=== PATIENT | female | born 1955 | race Caucasian/White ===

== ENCOUNTER 2017-05-04 18:07 | Emergency (ER) | payer MEDICARE, OTHER ==
[~2017-05-04] VITALS: Ht 154.9 cm; Wt 100.0 kg
[~2017-05-04 18:07] MED LIST: ACET-2178 PO; ALPR-392 PO; ASPI-1159 PO; ATOR20TA65 PO; CARV6.2548 PO; FAMO20TA8 PO; FERR-63 PO; FURO20TA4 PO; GLIP5TAB12 PO; INSU3INS6 SUBCUT; LEVO88TA7 PO; REPAGLINIDE PO; SPIR25TA4 PO
[2017-05-04 18:29] VITALS: BP 101/69
== END 2017-05-04 21:30 | disposition left against medical advice (07) ==
LOC: ER 18:07
DX: S09.90XA Unspecified injury of head, initial encounter (principal); Z53.21 Procedure and treatment not carried out due to patient leaving prior to being seen by health care provider; X58.XXXA Exposure to other specified factors, initial encounter; Y93.89 Activity, other specified; Y92.89 Other specified places as the place of occurrence of the external cause; Y99.8 Other external cause status

== ENCOUNTER 2017-05-11 01:00 | Inpatient (IN) | payer MEDICARE, OTHER ==
[~2017-05-11] VITALS: Ht 177.8 cm; Wt 99.8 kg
[2017-05-11] VITALS (70 sets, daily range): BP systolic 67–112; BP diastolic 45–75
[2017-05-11] MEDS ORDERED: ACETAMINOPHEN 325MG TABLET PO STA (02:06)
[2017-05-11 02:25] LABS: BASOPHILS % 0.7 % (0.0-2.0); HEMATOCRIT. 34.6 % (36.0-48.0); HEMOGLOBIN. 11.2 g/dL (12.0-16.0); LYMPHOCYTES % 20.1 % (20.0-50.0); MEAN CORPUSCULAR HEMOGLOBIN 27.6 pg (28.0-32.0); MEAN CORPUSCULAR VOLUME 85.1 fL (81.0-99.0); MEAN PLATELET VOLUME 8.3 fl (7.4-10.4); NEUTROPHILS % 67.2 % (40.0-76.0); PLATELET 218 x1000/uL (130-400); RED BLOOD CELL COUNT 4.06 mill/uL (4.2-5.4); RED CELL DISTRIBUTION WIDTH 16.3 % (11.6-14.6)
[2017-05-11 02:33] LABS: INR 1.1; PROTHROMBIN TIME 11.1 sec
[2017-05-11 02:39] LABS: CARBON DIOXIDE 26 mEq/L (21-32); CHLORIDE 105 mEq/L (98-107)
[2017-05-11] MEDS ORDERED: MORPHINE SULFATE 4 MG/ML CPJ (NOT FOR IM USE) IV STA (03:05)
[2017-05-11] MEDS ORDERED: ONDANSETRON HCL 4MG/2ML VIAL IV STA (03:05)
[2017-05-11] MEDS ORDERED: NICARDIPINE 50 MG in SODIUM CHLORIDE 0.9% 230 ML IV PRN (08:00)
[2017-05-11] MEDS ORDERED: NICARDIPINE 100 MG in SODIUM CHLORIDE 0.9% 100 ML IV PRN (08:15)
[2017-05-11] MEDS: DEXT 5%/LACTATED RINGERS 1,000 ML IV SCH ×2 (08:28→23:48)
[2017-05-11] MEDS: NOREPINEPHRINE 4 MG in DEXT 5% WATER 246 ML IV PRN ×2 (09:00→21:38)
[2017-05-11] MEDS ORDERED: IPRATROPIUM/ALBUTEROL 0.5-3(2.5)MG/3ML NEB HHN PRN (09:00)
[2017-05-11 09:08] LABS: BG BASE EXCESS -0.2 mmol/L (-2.0-2.0); BG CARBOXYHEMOGLOBIN 3.4 % (0.5-1.5); BG DEOXYHEMOGLOBIN 2.5 % (0.0-5.0); BG FRACTION INSPIRED OXYGEN 28; BG HCO3 ACT 26.4 mmol/L (22.0-26.0); BG METHEMOGLOBIN 0.3 % (0.0-1.5); BG OXYGEN SATURATION 97.4 % (92.0-98.5); BG OXYHEMOGLOBIN 93.8 % (94.0-97.0); BG PCO2 51.5 mmHg (35.0-45.0); BG PH 7.327 (7.350-7.450); BG PO2 112.4 mmHg (75.0-100.0); BG SAMPLE SITE RIGHT RADIAL; BG TOTAL HEMOGLOBIN 12.2 g/dL (12.0-18.0); BG VENT MODE NASAL CANNULA
[2017-05-11] MEDS ORDERED: REPA1TAB5 PO (09:22)
[2017-05-11] MEDS ORDERED: LEVOTHYROXINE SODIUM 50MCG TABLET PO NR (10:00)
[2017-05-11] MEDS ORDERED: KCL 20MEQ/100ML PREMIX 100 ML IV SCH (10:00)
[2017-05-11] MEDS: PANTOPRAZOLE SODIUM 40 MG/VIAL IV SCH (10:01)
[2017-05-11] MEDS: PIPERACILLIN SODIUM/TAZOBACTAM 4.5 G in DEXT 5% WATER 100 ML IV SCH ×2 (10:03→17:40)
[2017-05-11] MEDS ORDERED: DEXTROSE 50% WATER 50ML SYRINGE IV PRN (10:30)
[2017-05-11] MEDS ORDERED: VANCOMYCIN 1500MG in DEXTROSE 5% WATER 250ML IV NR (11:00)
[2017-05-11] MEDS: BLOOD SUGAR DIAGNOSTIC STRIP TEST SCH ×3 (12:28→21:19)
[2017-05-11] MEDS: LEVETIRACETAM 500 MG in SODIUM CHLORIDE 0.9% 100 ML IV SCH ×2 (12:30→21:19)
[2017-05-11] MEDS: INSULIN LISPRO 100 UNITS/ML SUBCUT SCH ×3 (12:30→21:00)
[2017-05-11] MEDS: IPRATROPIUM/ALBUTEROL 0.5-3(2.5)MG/3ML NEB HHN SCH ×2 (14:38→19:54)
[2017-05-11 19:05] LABS: CLARITY URINE CLOUDY (CLEAR); COLOR URINE YELLOW (YELLOW); GLUCOSE URINE NEGATIVE (NEGATIVE); KETONES URINE TRACE (NEGATIVE); LEUKOCYTE ESTERASE URINE 2+ (NEGATIVE); NITRITE URINE NEGATIVE (NEGATIVE); OCCULT BLOOD URINE NEGATIVE (NEGATIVE); PH URINE 5.5 (4.5-8.0); PROTEIN URINE NEGATIVE (NEGATIVE); SPECIFIC GRAVITY URINE 1.026 (1.005-1.030)
[2017-05-11 19:31] LABS: *AMPHETAMINES SCREEN URINE NEGATIVE (NEGATIVE); *BARBITURATES SCREEN URINE NEGATIVE (NEGATIVE); *BENZODIAZEPINES SCREEN URINE PRESUMTIVE POSITIVE (NEGATIVE); *COCAINE SCREEN URINE NEGATIVE (NEGATIVE); CANNABINOID URINE SCREEN NEGATIVE (NEGATIVE); METHADONE URINE SCREEN NEGATIVE (NEGATIVE); OPIATES URINE SCREEN PRESUMTIVE POSITIVE (NEGATIVE); PHENCYCLIDINE URINE SCREEN NEGATIVE (NEGATIVE)
[2017-05-11] MEDS: MORPHINE SULFATE 2 MG/ML CPJ (NOT FOR IM USE) IV PRN (23:47)
[2017-05-12] VITALS (99 sets, daily range): BP systolic 61–187; BP diastolic 23–91
[2017-05-12] MEDS: PIPERACILLIN SODIUM/TAZOBACTAM 4.5 G in DEXT 5% WATER 100 ML IV SCH ×3 (01:57→17:45)
[2017-05-12] MEDS: IPRATROPIUM/ALBUTEROL 0.5-3(2.5)MG/3ML NEB HHN SCH ×4 (01:58→19:57)
[2017-05-12] MEDS: MORPHINE SULFATE 2 MG/ML CPJ (NOT FOR IM USE) IV PRN ×3 (03:38→22:23)
[2017-05-12] MEDS: LEVOTHYROXINE SODIUM 50MCG TABLET PO SCH (06:07)
[2017-05-12] MEDS: BLOOD SUGAR DIAGNOSTIC STRIP TEST SCH ×4 (06:14→20:44)
[2017-05-12] MEDS: INSULIN LISPRO 100 UNITS/ML SUBCUT SCH ×4 (06:19→20:44)
[2017-05-12] MEDS: LEVETIRACETAM 500 MG in SODIUM CHLORIDE 0.9% 100 ML IV SCH (08:57)
[2017-05-12] MEDS ORDERED: VANCOMYCIN 1500MG in DEXTROSE 5% WATER 250ML IV SCH (09:00)
[2017-05-12] MEDS: PANTOPRAZOLE SODIUM 40 MG/VIAL IV SCH (09:43)
[2017-05-12 09:51] LABS: BASOPHILS % 0.4 % (0.0-2.0); HEMATOCRIT. 34.8 % (36.0-48.0); HEMOGLOBIN. 11.2 g/dL (12.0-16.0); LYMPHOCYTES % 12.2 % (20.0-50.0); MEAN CORPUSCULAR HEMOGLOBIN 27.2 pg (28.0-32.0); MEAN CORPUSCULAR VOLUME 84.8 fL (81.0-99.0); MEAN PLATELET VOLUME 8.6 fl (7.4-10.4); MONOCYTES % 12.8 % (2.0-8.0); NEUTROPHILS % 74.6 % (40.0-76.0); PLATELET 233 x1000/uL (130-400); RED CELL DISTRIBUTION WIDTH 16.7 % (11.6-14.6)
[2017-05-12 10:09] LABS: CARBON DIOXIDE 26 mEq/L (21-32); CHLORIDE 105 mEq/L (98-107)
[2017-05-12] MEDS: NOREPINEPHRINE 4 MG in DEXT 5% WATER 246 ML IV PRN (10:28)
[2017-05-12] MEDS ORDERED: VANCOMYCIN 1250MG in DEXTROSE 5% WATER 250ML IV SCH (11:00)
[2017-05-12] MEDS: ACETAMINOPHEN 325MG TABLET PO PRN ×2 (11:52→20:18)
[2017-05-12] MEDS: DEXT 5%/LACTATED RINGERS 1,000 ML IV SCH (20:18)
[2017-05-12] MEDS: LEVETIRACETAM 500MG TABLET PO SCH (20:18)
[2017-05-13] VITALS (51 sets, daily range): BP systolic 66–119; BP diastolic 15–77
[2017-05-13] MEDS: NOREPINEPHRINE 4 MG in DEXT 5% WATER 246 ML IV PRN (00:49)
[2017-05-13] MEDS: PIPERACILLIN SODIUM/TAZOBACTAM 4.5 G in DEXT 5% WATER 100 ML IV SCH ×3 (01:01→17:29)
[2017-05-13] MEDS: IPRATROPIUM/ALBUTEROL 0.5-3(2.5)MG/3ML NEB HHN SCH ×4 (02:00→21:21)
[2017-05-13] MEDS: MORPHINE SULFATE 2 MG/ML CPJ (NOT FOR IM USE) IV PRN ×2 (02:17→22:41)
[2017-05-13] MEDS: VANCOMYCIN 1500MG in DEXTROSE 5% WATER 250ML IV SCH ×2 (04:10→23:54)
[2017-05-13] MEDS: ACETAMINOPHEN 325MG TABLET PO PRN (06:29)
[2017-05-13] MEDS: LEVOTHYROXINE SODIUM 50MCG TABLET PO SCH (06:30)
[2017-05-13] MEDS: BLOOD SUGAR DIAGNOSTIC STRIP TEST SCH ×4 (06:30→21:39)
[2017-05-13] MEDS: PANTOPRAZOLE 40MG DR TABLET PO SCH (06:30)
[2017-05-13] MEDS: INSULIN LISPRO 100 UNITS/ML SUBCUT SCH ×4 (06:53→22:49)
[2017-05-13] MEDS: LEVETIRACETAM 500MG TABLET PO SCH ×2 (08:02→22:34)
[2017-05-14] VITALS: BP 108/77
[2017-05-14] MEDS: PIPERACILLIN SODIUM/TAZOBACTAM 4.5 G in DEXT 5% WATER 100 ML IV SCH ×3 (01:58→17:13)
[2017-05-14] MEDS: IPRATROPIUM/ALBUTEROL 0.5-3(2.5)MG/3ML NEB HHN SCH ×3 (02:00→21:07)
[2017-05-14] MEDS: PANTOPRAZOLE 40MG DR TABLET PO SCH (06:50)
[2017-05-14] MEDS: LEVOTHYROXINE SODIUM 50MCG TABLET PO SCH (06:51)
[2017-05-14] MEDS: BLOOD SUGAR DIAGNOSTIC STRIP TEST SCH ×4 (06:54→20:53)
[2017-05-14] MEDS: MORPHINE SULFATE 2 MG/ML CPJ (NOT FOR IM USE) IV PRN ×4 (06:56→21:17)
[2017-05-14 07:47] LABS: BASOPHILS % 0.7 % (0.0-2.0); HEMATOCRIT. 33.7 % (36.0-48.0); HEMOGLOBIN. 10.9 g/dL (12.0-16.0); LYMPHOCYTES % 26.5 % (20.0-50.0); MEAN CORPUSCULAR HEMOGLOBIN 27.3 pg (28.0-32.0); MEAN CORPUSCULAR VOLUME 84.3 fL (81.0-99.0); MEAN PLATELET VOLUME 8.9 fl (7.4-10.4); MONOCYTES % 11.5 % (2.0-8.0); NEUTROPHILS % 61.3 % (40.0-76.0); PLATELET 181 x1000/uL (130-400); RED CELL DISTRIBUTION WIDTH 16.5 % (11.6-14.6)
[2017-05-14] MEDS: INSULIN LISPRO 100 UNITS/ML SUBCUT SCH ×4 (07:50→21:11)
[2017-05-14 08:00] VITALS: BP 104/62
[2017-05-14] MEDS: LEVETIRACETAM 500MG TABLET PO SCH ×2 (09:03→20:53)
[2017-05-14] MEDS: VANCOMYCIN 750 MG PREMIX 150 ML IV SCH ×2 (10:43→20:53)
[2017-05-14 12:00] VITALS: BP 121/81
[2017-05-14 16:00] VITALS: BP 80/47
[2017-05-14 20:00] VITALS: BP 102/66
[2017-05-15] VITALS: BP 103/74
[2017-05-15] MEDS: IPRATROPIUM/ALBUTEROL 0.5-3(2.5)MG/3ML NEB HHN SCH ×3 (00:19→21:00)
[2017-05-15] MEDS: PIPERACILLIN SODIUM/TAZOBACTAM 4.5 G in DEXT 5% WATER 100 ML IV SCH ×3 (02:15→18:37)
[2017-05-15 04:00] VITALS: BP 109/70
[2017-05-15] MEDS: MORPHINE SULFATE 2 MG/ML CPJ (NOT FOR IM USE) IV PRN ×3 (05:01→21:37)
[2017-05-15] MEDS: LEVOTHYROXINE SODIUM 50MCG TABLET PO SCH (06:25)
[2017-05-15] MEDS: BLOOD SUGAR DIAGNOSTIC STRIP TEST SCH ×4 (06:29→21:00)
[2017-05-15] MEDS: INSULIN LISPRO 100 UNITS/ML SUBCUT SCH ×4 (07:27→21:00)
[2017-05-15 08:00] VITALS: BP 96/69
[2017-05-15] MEDS: LEVETIRACETAM 500MG TABLET PO SCH ×2 (08:29→21:36)
[2017-05-15] MEDS: FAMOTIDINE 20MG TABLET PO SCH ×2 (08:29→21:36)
[2017-05-15] MEDS: VANCOMYCIN 750 MG PREMIX 150 ML IV SCH ×2 (08:30→21:36)
[2017-05-15 12:00] VITALS: BP 101/69
[2017-05-15 16:00] VITALS: BP 100/68
[2017-05-15 20:00] VITALS: BP 99/68
[2017-05-16] VITALS: BP 98/64
[2017-05-16] MEDS: IPRATROPIUM/ALBUTEROL 0.5-3(2.5)MG/3ML NEB HHN SCH ×4 (01:10→20:52)
[2017-05-16] MEDS: PIPERACILLIN SODIUM/TAZOBACTAM 4.5 G in DEXT 5% WATER 100 ML IV SCH ×2 (02:00→10:52)
[2017-05-16 04:00] VITALS: BP 105/73
[2017-05-16] MEDS: MORPHINE SULFATE 2 MG/ML CPJ (NOT FOR IM USE) IV PRN (04:37)
[2017-05-16] MEDS: BLOOD SUGAR DIAGNOSTIC STRIP TEST SCH ×4 (07:20→21:00)
[2017-05-16] MEDS: INSULIN LISPRO 100 UNITS/ML SUBCUT SCH ×4 (07:50→22:39)
[2017-05-16 08:00] VITALS: BP 107/78
[2017-05-16] MEDS: LEVETIRACETAM 500MG TABLET PO SCH ×2 (08:56→21:55)
[2017-05-16] MEDS: LEVOTHYROXINE SODIUM 50MCG TABLET PO SCH (08:56)
[2017-05-16] MEDS: FAMOTIDINE 20MG TABLET PO SCH ×2 (08:56→21:55)
[2017-05-16] MEDS: VANCOMYCIN 750 MG PREMIX 150 ML IV SCH (08:56)
[2017-05-16] MEDS: ACETAMINOPHEN 325MG TABLET PO PRN (10:04)
[2017-05-16 12:00] VITALS: BP 101/68
[2017-05-16 16:00] VITALS: BP 98/67
[2017-05-16 20:00] VITALS: BP 110/97
[2017-05-17] VITALS: BP 112/77
[2017-05-17] MEDS: IPRATROPIUM/ALBUTEROL 0.5-3(2.5)MG/3ML NEB HHN SCH ×3 (01:13→13:42)
[2017-05-17 04:00] VITALS: BP 156/85
[2017-05-17] MEDS: LEVOTHYROXINE SODIUM 50MCG TABLET PO SCH (06:45)
[2017-05-17] MEDS: BLOOD SUGAR DIAGNOSTIC STRIP TEST SCH ×4 (06:46→21:53)
[2017-05-17 08:00] VITALS: BP 96/70
[2017-05-17] MEDS: LEVETIRACETAM 500MG TABLET PO SCH ×2 (08:23→21:53)
[2017-05-17] MEDS: FAMOTIDINE 20MG TABLET PO SCH ×2 (08:23→21:53)
[2017-05-17] MEDS: INSULIN LISPRO 100 UNITS/ML SUBCUT SCH ×4 (08:24→22:10)
[2017-05-17 12:00] VITALS: BP 100/73
[2017-05-17 16:00] VITALS: BP 112/82
[2017-05-17 20:00] VITALS: BP 110/73
[2017-05-18] VITALS: BP 111/76
[2017-05-18 04:00] VITALS: BP 112/78
[2017-05-18] MEDS: LEVOTHYROXINE SODIUM 50MCG TABLET PO SCH (06:44)
[2017-05-18] MEDS: BLOOD SUGAR DIAGNOSTIC STRIP TEST SCH ×4 (06:44→20:36)
[2017-05-18] MEDS: INSULIN LISPRO 100 UNITS/ML SUBCUT SCH ×4 (06:48→20:43)
[2017-05-18 08:00] VITALS: BP 103/72
[2017-05-18] MEDS: IPRATROPIUM/ALBUTEROL 0.5-3(2.5)MG/3ML NEB HHN SCH ×3 (08:05→19:53)
[2017-05-18] MEDS: FAMOTIDINE 20MG TABLET PO SCH ×2 (09:15→20:36)
[2017-05-18] MEDS: LEVETIRACETAM 500MG TABLET PO SCH ×2 (09:15→20:36)
[2017-05-18 12:00] VITALS: BP 111/75
[2017-05-18] MEDS: ACETAMINOPHEN 325MG TABLET PO PRN (13:26)
[2017-05-18 20:00] VITALS: BP 111/81
[2017-05-19] MEDS: IPRATROPIUM/ALBUTEROL 0.5-3(2.5)MG/3ML NEB HHN SCH ×4 (01:05→21:00)
[2017-05-19 04:00] VITALS: BP 115/82
[2017-05-19] MEDS: LEVOTHYROXINE SODIUM 50MCG TABLET PO SCH (06:55)
[2017-05-19] MEDS: BLOOD SUGAR DIAGNOSTIC STRIP TEST SCH ×4 (06:58→20:54)
[2017-05-19 08:00] VITALS: BP 93/66
[2017-05-19] MEDS: FAMOTIDINE 20MG TABLET PO SCH ×2 (08:00→20:52)
[2017-05-19] MEDS: LEVETIRACETAM 500MG TABLET PO SCH ×2 (08:00→20:52)
[2017-05-19] MEDS: INSULIN LISPRO 100 UNITS/ML SUBCUT SCH ×4 (08:04→20:51)
[2017-05-19 12:00] VITALS: BP 104/79
[2017-05-19] MEDS ORDERED: POTASSIUM CHLORIDE 20MEQ TABLET SR PO NR (12:00)
[2017-05-19 16:00] VITALS: BP 106/78
[2017-05-19 20:00] VITALS: BP 103/74
[2017-05-19] MEDS: ACETAMINOPHEN 325MG TABLET PO PRN (20:58)
[2017-05-20] VITALS: BP 100/65
[2017-05-20] MEDS: IPRATROPIUM/ALBUTEROL 0.5-3(2.5)MG/3ML NEB HHN SCH ×4 (02:45→20:50)
[2017-05-20 04:00] VITALS: BP 118/80
[2017-05-20] MEDS: LEVOTHYROXINE SODIUM 50MCG TABLET PO SCH (06:43)
[2017-05-20] MEDS: INSULIN LISPRO 100 UNITS/ML SUBCUT SCH ×4 (07:50→20:39)
[2017-05-20] MEDS: BLOOD SUGAR DIAGNOSTIC STRIP TEST SCH ×4 (07:53→20:29)
[2017-05-20 08:00] VITALS: BP 107/74
[2017-05-20] MEDS: FAMOTIDINE 20MG TABLET PO SCH ×2 (08:42→20:27)
[2017-05-20] MEDS: LEVETIRACETAM 500MG TABLET PO SCH ×2 (08:42→20:27)
[2017-05-20] MEDS: ACETAMINOPHEN 325MG TABLET PO PRN (08:47)
[2017-05-20 08:51] LABS: BASOPHILS % 0.7 % (0.0-2.0); HEMATOCRIT. 35.5 % (36.0-48.0); HEMOGLOBIN. 11.5 g/dL (12.0-16.0); LYMPHOCYTES % 30.7 % (20.0-50.0); MEAN CORPUSCULAR HEMOGLOBIN 27.3 pg (28.0-32.0); MEAN CORPUSCULAR VOLUME 84.6 fL (81.0-99.0); MEAN PLATELET VOLUME 8.2 fl (7.4-10.4); MONOCYTES % 12.2 % (2.0-8.0); NEUTROPHILS % 56.4 % (40.0-76.0); PLATELET 174 x1000/uL (130-400); RED CELL DISTRIBUTION WIDTH 16.8 % (11.6-14.6)
[2017-05-20 09:14] LABS: CARBON DIOXIDE 26 mEq/L (21-32); CHLORIDE 108 mEq/L (98-107)
[2017-05-20 12:00] VITALS: BP 109/77
[2017-05-20 16:00] VITALS: BP 100/70
[2017-05-20 20:00] VITALS: BP 96/67
[2017-05-21] VITALS: BP 93/69
[2017-05-21] MEDS: IPRATROPIUM/ALBUTEROL 0.5-3(2.5)MG/3ML NEB HHN SCH (02:10)
[2017-05-21] MEDS: ACETAMINOPHEN 325MG TABLET PO PRN ×2 (03:37→10:01)
[2017-05-21 04:00] VITALS: BP 102/74
[2017-05-21] MEDS: LEVOTHYROXINE SODIUM 50MCG TABLET PO SCH (06:22)
[2017-05-21] MEDS: BLOOD SUGAR DIAGNOSTIC STRIP TEST SCH ×2 (06:24→12:20)
[2017-05-21] MEDS: INSULIN LISPRO 100 UNITS/ML SUBCUT SCH ×2 (06:40→12:50)
[2017-05-21 08:00] VITALS: BP 119/84
[2017-05-21] MEDS: LEVETIRACETAM 500MG TABLET PO SCH (08:06)
[2017-05-21] MEDS: FAMOTIDINE 20MG TABLET PO SCH (08:06)
[2017-05-21 12:00] VITALS: BP 118/83
[2017-05-21 13:00] VITALS: BP 118/83
[2017-05-21 13:42] VITALS: BP 118/83
== END 2017-05-21 15:15 | disposition home or self-care (01) | DRG 871 ==
LOC: ER 01:00 → MICUSO 05:40 → EDBEDREQ 05:43 → EDBEDREQTM 05:43 → ENRESERV 06:00 → MICUNO 05-12 08:41 → MICUSO 05-12 18:40 → 6EST 05-13 17:45
PROVIDERS: ADMIT Internal Medicine; ATTEND Internal Medicine
PROC: 05H933Z Insertion of Infusion Device into Right Brachial Vein, Percutaneous Approach (ICD-10-PCS; principal; 2017-05-11)
PROC: B54MZZA Ultrasonography of Right Upper Extremity Veins, Guidance (ICD-10-PCS; 2017-05-11)
DX: A41.9 Sepsis, unspecified organism (principal); G93.40 Encephalopathy, unspecified; S06.5X0A Traumatic subdural hemorrhage without loss of consciousness, initial encounter; I87.1 Compression of vein; E46 Unspecified protein-calorie malnutrition; I42.9 Cardiomyopathy, unspecified; L03.115 Cellulitis of right lower limb; L03.116 Cellulitis of left lower limb; I50.9 Heart failure, unspecified; E87.6 Hypokalemia; E11.42 Type 2 diabetes mellitus with diabetic polyneuropathy; D64.9 Anemia, unspecified; E03.9 Hypothyroidism, unspecified; Z68.31 Body mass index [BMI] 31.0-31.9, adult; E66.01 Morbid (severe) obesity due to excess calories; J44.9 Chronic obstructive pulmonary disease, unspecified; I11.0 Hypertensive heart disease with heart failure; M06.9 Rheumatoid arthritis, unspecified; M54.30 Sciatica, unspecified side; M54.2 Cervicalgia; W01.0XXA Fall on same level from slipping, tripping and stumbling without subsequent striking against object, initial encounter; Z66 Do not resuscitate; Z90.49 Acquired absence of other specified parts of digestive tract; Z98.51 Tubal ligation status; Z88.8 Allergy status to other drugs, medicaments and biological substances; Z79.82 Long term (current) use of aspirin; Z79.84 Long term (current) use of oral hypoglycemic drugs; Z87.891 Personal history of nicotine dependence; Y93.89 Activity, other specified; Y92.89 Other specified places as the place of occurrence of the external cause; Y99.8 Other external cause status
CPT/HCPCS: 36415; 36569; 36600; 70450; 71010; 72125; 76937; 80048; 80053; 80202; 80305; 81001; 82375; 82805; 82962; 83036; 83735; 84443; 85025; 85610; 86850; 86870; 86880; 86900; 87040; 87086; 93005; 93970; 94640; 96374; 96375; 97162; 97165; 99285; C1725; C9113; J1815; J1953; J2270; J2405; J2543; J3370; J3480; J3490; J7050; J7060; J7120; J7121; J7620